=== PATIENT | female | born 1980 | race Caucasian/White ===

== ENCOUNTER 2021-08-11 11:59 | Emergency (ER) | payer MEDICAID ==
[~2021-08-11] VITALS: Ht 162.6 cm; Wt 110.0 kg
[2021-08-11] MEDS ORDERED: ACETAMINOPHEN 325MG TABLET PO STA (12:32)
[2021-08-11] MEDS ORDERED: IBUPROFEN 600MG TABLET PO STA (12:32)
[2021-08-11 12:49] LABS: BASOPHILS % 1.1 % (0.0-2.0); EOSINOPHILS % 2.1 % (0.0-5.0); HEMATOCRIT. 35.8 % (36.0-48.0); HEMOGLOBIN. 11.8 g/dL (12.0-16.0); LYMPHOCYTES % 14.6 % (20.0-50.0); MEAN CORPUSCULAR HEMOGLOBIN 30.1 pg (28.0-32.0); MEAN CORPUSCULAR VOLUME 90.9 fL (81.0-99.0); MEAN PLATELET VOLUME 7.2 fl (7.4-10.4); MONOCYTES % 6.7 % (2.0-8.0); NEUTROPHILS % 75.5 % (40.0-76.0); PLATELET 505 x1000/uL (130-400); RED BLOOD CELL COUNT 3.93 mill/uL (4.2-5.4); RED CELL DISTRIBUTION WIDTH 13.3 % (11.6-14.6)
[2021-08-11 13:00] LABS: CHLORIDE 102 mEq/L (98-107)
[2021-08-11 13:07] LABS: CREATINE KINASE 21 IU/L (26-192)
[2021-08-11] MEDS ORDERED: LORAZEPAM 1MG TABLET PO ONE (13:15)
[2021-08-11 13:25] LABS: CLARITY URINE CLEAR (CLEAR); COLOR URINE DARK YELLOW (YELLOW); KETONES URINE 1+ (NEGATIVE); LEUKOCYTE ESTERASE URINE 1+ (NEGATIVE); NITRITE URINE NEGATIVE (NEGATIVE); OCCULT BLOOD URINE NEGATIVE (NEGATIVE); PH URINE >=9.0 (4.5-8.0); PROTEIN URINE 1+ (NEGATIVE); SPECIFIC GRAVITY URINE 1.017 (1.005-1.030)
[2021-08-11] MEDS ORDERED: CEPHALEXIN 250MG CAPSULE PO NR (14:45)
[2021-08-11] MEDS ORDERED: CEPH500C2 MT (14:56)
[2021-08-11] MEDS ORDERED: IBUP-2029 MT (14:57)
[2021-08-11 15:00] VITALS: BP 133/69
== END 2021-08-11 15:15 | disposition home or self-care (01) ==
LOC: ER 11:59
DX: N39.0 Urinary tract infection, site not specified (principal); Z98.890 Other specified postprocedural states
CPT/HCPCS: 36415; 80053; 81003; 81025; 82550; 85025; 93005; 99285